=== PATIENT | female | born 2000 | race Caucasian/White ===

== ENCOUNTER 2023-07-07 21:23 | Emergency (ER) | payer MEDICAID, OTHER ==
[~2023-07-07] VITALS: Ht 162.6 cm; Wt 92.0 kg
[2023-07-07 21:39] VITALS: BP 134/89; PULSE 84; RESP 16; TEMP 98.2; O2SAT 99
[2023-07-07] MEDS ORDERED: CYCL5TAB MT (22:50)
[2023-07-07] MEDS ORDERED: IBUP-2030 MT (22:50)
== END 2023-07-07 22:56 | disposition home or self-care (01) ==
LOC: ER 21:23
DX: M79.605 Pain in left leg (principal); R51.9 Headache, unspecified; V98.8XXA Other specified transport accidents, initial encounter; Y93.89 Activity, other specified; Y92.89 Other specified places as the place of occurrence of the external cause; Y99.8 Other external cause status
CPT/HCPCS: 71045; 99283